=== PATIENT | male | born 1960 | race Caucasian/White ===

== ENCOUNTER 2016-06-06 21:03 | Emergency (ER) | payer OTHER ==
[2016-06-06 22:30] LABS: BILIRUBIN NEGATIVE (NEGATIVE); BLOOD TRACE-INTACT Ery/uL (NEGATIVE); CLARITY CLEAR (CLEAR); COLOR YELLOW (YELLOW); GLUCOSE (U) NORMAL (NORMAL); KETONE (U) NEGATIVE (NEGATIVE); LEUKOCYTES NEGATIVE Leu/uL (NEGATIVE); NITRITE NEGATIVE (NEGATIVE); PROTEIN 2+ mg/dL (NEGATIVE); UROBILINOGEN 0.2 mg/dL (0.2-1.0); pH 5.5 (5.0-9.0)
[2016-06-06 23:18] LABS: BASOPHIL 0.3 % (0-2); EOSINOPHIL 1.9 % (0-5); HCT 38.9 % (42.0-52.0); HGB 13.1 g/dl (13.2-18.0); LYMPHOCYTE 9.1 % (15-48); MCH 28.2 pg (25.0-31.0); MCHC 33.7 g/dL (32.0-36.0); MCV 83.8 fL (78.0-100.0); MONOCYTE 7.5 % (0-12); MPV 10.6 fL (6.0-9.5); NEUTROPHIL 81.2 % (41-80); PLT 355 K/uL (150-400); RBC 4.64 M/uL (4.70-6.00); RDW 15.6 % (11.5-14.0)
[2016-06-06 23:23] LABS: WBC 15.4 K/uL (4.0-10.5)
[2016-06-06 23:36] LABS: CREATININE 0.8 mg/dL (0.7-1.2); POTASSIUM 3.4 mmol/L (3.5-5.1)
== END 2016-06-07 00:15 | disposition home or self-care (01) ==
LOC: FER 21:03
PROVIDERS: Emergency Medicine
DX: K21.9 Gastro-esophageal reflux disease without esophagitis (principal); R42 Dizziness and giddiness; J02.9 Acute pharyngitis, unspecified; I10 Essential (primary) hypertension; E11.9 Type 2 diabetes mellitus without complications; E66.01 Morbid (severe) obesity due to excess calories; Z88.8 Allergy status to other drugs, medicaments and biological substances; Z79.82 Long term (current) use of aspirin; Z79.84 Long term (current) use of oral hypoglycemic drugs; Z79.4 Long term (current) use of insulin; Z79.899 Other long term (current) drug therapy
CPT/HCPCS: 36415; 71010; 80048; 81001; 85025; 87450; 87804; 87899; 93005

== ENCOUNTER → 2016-07-17 | Day surgery (SDC) | payer OTHER ==
[~2016-07-17] MED LIST: ACETAMINOPHEN325 MG PO; ANTIVERT25 MG PO; ASPIRIN CHEWABL81 MG PO; CARAFATE1 GM PO; CLONIDINE 0.3M0.3 MG PO; COREG12.5 MG PO; DIGITEK250 MCG PO; EXFORGE 10-3201 EACH PO; FISH OI PO; FLAXSEED OIL PO; FLONASE ALLER15.8 ML; HCTZ25 MG PO; HUMULIN R SQ; HUMULIN R100 UNIT/2 SQ; K-DUR20 MEQ PO; LANTUS100 UNIT/1 SQ; LASIX40 MG PO; LINZESS145 MCG PO; LIPITOR80 MG PO; MAG-OXIDE 400M400 MG PO; METFORMIN HCL1000 MG PO; NEURONTIN300 MG PO; NITROSTAT0.4 MG SL; NYSTATIN1 EAC3 TOP; PHENERGAN25 M1 PO; SYNTHROID50 MCG PO; VENTOLIN HFA IN18 GM INH; VIBRAMYCIN100 MG PO; VITAMIN D1000 UNI1 PO; ZANTAC150 MG PO; ZYRTEC10 MG PO
[2016-07-17 08:24] LABS: HCT 40.7 % (42.0-52.0); HGB 13.8 g/dl (13.2-18.0); MCH 28.6 pg (25.0-31.0); MCHC 33.9 g/dL (32.0-36.0); MCV 84.4 fL (78.0-100.0); MPV 10.4 fL (6.0-9.5); RBC 4.82 M/uL (4.70-6.00); RDW 15.3 % (11.5-14.0); WBC 13.3 K/uL (4.0-10.5)
[2016-07-17 08:40] LABS: ALBUMIN 4.3 g/dL (3.5-5.0); BILIRUBIN - TOTAL 1.1 mg/dL (0.1-1.0); CREATININE 0.7 mg/dL (0.7-1.2); GLOBULIN (CALCULATION) 3.6 g/dL (2.2-4.2); POTASSIUM 3.8 mmol/L (3.5-5.1); TOTAL PROTEIN 7.9 g/dL (6.4-8.3)
== END | disposition home or self-care (01) ==
LOC: FAS 07-02 09:00
PROVIDERS: Surgery
DX: Z12.11 Encounter for screening for malignant neoplasm of colon (principal); I10 Essential (primary) hypertension; I48.91 Unspecified atrial fibrillation; E11.9 Type 2 diabetes mellitus without complications; E78.00 Pure hypercholesterolemia, unspecified; E03.9 Hypothyroidism, unspecified; K21.9 Gastro-esophageal reflux disease without esophagitis; M19.90 Unspecified osteoarthritis, unspecified site; G47.30 Sleep apnea, unspecified; J45.909 Unspecified asthma, uncomplicated; J44.9 Chronic obstructive pulmonary disease, unspecified; H26.9 Unspecified cataract; K31.84 Gastroparesis; E66.01 Morbid (severe) obesity due to excess calories; Z87.891 Personal history of nicotine dependence; Z95.5 Presence of coronary angioplasty implant and graft; Z88.8 Allergy status to other drugs, medicaments and biological substances; Z99.89 Dependence on other enabling machines and devices; Z87.01 Personal history of pneumonia (recurrent); Z81.1 Family history of alcohol abuse and dependence; Z82.3 Family history of stroke; Z82.49 Family history of ischemic heart disease and other diseases of the circulatory system; Z79.4 Long term (current) use of insulin; Z79.899 Other long term (current) drug therapy; Z98.890 Other specified postprocedural states
CPT/HCPCS: 36415; 80053; J2704

== ENCOUNTER 2016-08-09 18:46 | Emergency (ER) | payer OTHER | END 2016-08-09 22:00 | disposition left against medical advice (07) | LOC: FER 18:46 | DX: R10.9 Unspecified abdominal pain (principal); Z53.8 Procedure and treatment not carried out for other reasons ==

== ENCOUNTER 2016-08-15 13:17 | Emergency (ER) | payer OTHER | END 2016-08-15 15:32 | disposition home or self-care (01) | LOC: FER 13:17 | DX: M94.0 Chondrocostal junction syndrome [Tietze] (principal); E11.9 Type 2 diabetes mellitus without complications; Z85.828 Personal history of other malignant neoplasm of skin; Z87.81 Personal history of (healed) traumatic fracture; Z88.8 Allergy status to other drugs, medicaments and biological substances; Z79.4 Long term (current) use of insulin; Z79.84 Long term (current) use of oral hypoglycemic drugs | CPT/HCPCS: 71101; 99284 ==

== ENCOUNTER 2016-08-18 02:11 | Emergency (ER) | payer OTHER ==
[2016-08-18 03:16] LABS: BASOPHIL 0.3 % (0-2); HCT 37.2 % (42.0-52.0); HGB 12.7 g/dl (13.2-18.0); MCH 29.1 pg (25.0-31.0); MCHC 34.1 g/dL (32.0-36.0); MCV 85.3 fL (78.0-100.0); MONOCYTE 11.4 % (0-12); MPV 10.8 fL (6.0-9.5); NEUTROPHIL 70.3 % (41-80); PLT 296 K/uL (150-400); RBC 4.36 M/uL (4.70-6.00); RDW 14.8 % (11.5-14.0); WBC 12.1 K/uL (4.0-10.5)
[2016-08-18 03:32] LABS: CREATININE 0.8 mg/dL (0.7-1.2); POTASSIUM 3.7 mmol/L (3.5-5.1)
[2016-08-18 03:34] LABS: CKMB 2.77 ng/mL (0.97-4.94); TROPONIN T < 0.010 ng/mL
== END 2016-08-18 04:38 | disposition home or self-care (01) ==
LOC: FER 02:11
PROVIDERS: Emergency Medicine
DX: M94.0 Chondrocostal junction syndrome [Tietze] (principal); I10 Essential (primary) hypertension; I48.91 Unspecified atrial fibrillation; E78.5 Hyperlipidemia, unspecified; Z88.8 Allergy status to other drugs, medicaments and biological substances; Z79.84 Long term (current) use of oral hypoglycemic drugs; Z79.82 Long term (current) use of aspirin; Z79.899 Other long term (current) drug therapy
CPT/HCPCS: 36415; 71010; 80048; 82550; 82553; 84484; 85025; 85379; 93005; J1885

== ENCOUNTER 2016-08-19 16:46 | Emergency (ER) | payer OTHER ==
[2016-08-19 17:08] LABS: BASOPHIL 0.2 % (0-2); EOSINOPHIL 0 % (0-5); HCT 38.6 % (42.0-52.0); HGB 13.5 g/dl (13.2-18.0); LYMPHOCYTE 10.3 % (15-48); MCH 29.3 pg (25.0-31.0); MCV 83.9 fL (78.0-100.0); MONOCYTE 9.4 % (0-12); MPV 11.2 fL (6.0-9.5); NEUTROPHIL 80.1 % (41-80); PLT 379 K/uL (150-400); RDW 14.9 % (11.5-14.0)
[2016-08-19 17:20] LABS: INR 1.09 (0.9-1.2); PROTHROMBIN TIME 13.7 SECONDS (11.7-14.0); PTT 26.5 SECONDS (23.2-31.4)
[2016-08-19 17:30] LABS: CKMB 4.52 ng/mL (0.97-4.94); MYOGLOBIN 210 ng/mL (26-65); TROPONIN T < 0.010 ng/mL
[2016-08-19 17:33] LABS: BILIRUBIN - TOTAL 0.3 mg/dL (0.1-1.0); CREATININE 0.8 mg/dL (0.7-1.2); MAGNESIUM 1.67 mg/dL (1.40-2.10); POTASSIUM 4.5 mmol/L (3.5-5.1)
[2016-08-19 17:35] LABS: PRO-BNP 1085 pg/mL (0-125)
== END 2016-08-19 23:58 | disposition other institution (70) ==
LOC: FER 16:46
PROVIDERS: Emergency Medicine
DX: I21.4 Non-ST elevation (NSTEMI) myocardial infarction (principal); I10 Essential (primary) hypertension; E11.9 Type 2 diabetes mellitus without complications; E78.5 Hyperlipidemia, unspecified; Z85.828 Personal history of other malignant neoplasm of skin; Z88.8 Allergy status to other drugs, medicaments and biological substances; Z79.84 Long term (current) use of oral hypoglycemic drugs; Z79.82 Long term (current) use of aspirin; Z79.899 Other long term (current) drug therapy
CPT/HCPCS: 36415; 71010; 71275; 80053; 82550; 82553; 83735; 83874; 83880; 84484; 85025; 85610; 85730; 93005; 96374; J1644; J2270; J2405; Q9967

== ENCOUNTER 2016-08-22 18:51 | Day surgery (SDCO) | payer OTHER ==
[~2016-08-22] VITALS: Ht 172.7 cm; Wt 171.7 kg
[2016-08-22 21:08] LABS: BASOPHIL 0.3 % (0-2); HCT 39.3 % (42.0-52.0); HGB 13.6 g/dl (13.2-18.0); LYMPHOCYTE 15.1 % (15-48); MCH 29.1 pg (25.0-31.0); MCHC 34.6 g/dL (32.0-36.0); MONOCYTE 8.3 % (0-12); MPV 10.9 fL (6.0-9.5); NEUTROPHIL 74.3 % (41-80); PLT 373 K/uL (150-400); RBC 4.68 M/uL (4.70-6.00); RDW 15.1 % (11.5-14.0); WBC 16.8 K/uL (4.0-10.5)
[2016-08-22 21:23] LABS: ALBUMIN 3.8 g/dL (3.5-5.0); BILIRUBIN - TOTAL 0.5 mg/dL (0.1-1.0); CREATININE 0.9 mg/dL (0.7-1.2); GLOBULIN (CALCULATION) 3.4 g/dL (2.2-4.2); POTASSIUM 3.6 mmol/L (3.5-5.1); TOTAL PROTEIN 7.2 g/dL (6.4-8.3)
[2016-08-22 22:40] LABS: CKMB 2.97 ng/mL (0.97-4.94)
[2016-08-22 22:45] LABS: TROPONIN T 0.698 ng/mL
[2016-08-23 03:08] LABS: BASOPHIL 0.3 % (0-2); EOSINOPHIL 1.7 % (0-5); HCT 36.8 % (42.0-52.0); HGB 12.7 g/dl (13.2-18.0); LYMPHOCYTE 13.6 % (15-48); MCH 29.2 pg (25.0-31.0); MCHC 34.5 g/dL (32.0-36.0); MCV 84.6 fL (78.0-100.0); MONOCYTE 8.5 % (0-12); NEUTROPHIL 75.9 % (41-80); PLT 297 K/uL (150-400); RBC 4.35 M/uL (4.70-6.00); RDW 14.9 % (11.5-14.0); WBC 15.1 K/uL (4.0-10.5)
[2016-08-23 03:18] LABS: INR 1.13 (0.9-1.2); PROTHROMBIN TIME 14.1 SECONDS (11.7-14.0); PTT 29.2 SECONDS (23.2-31.4)
[2016-08-23 03:26] LABS: CKMB 2.76 ng/mL (0.97-4.94)
[2016-08-23 03:28] LABS: ALBUMIN 3.5 g/dL (3.5-5.0); BILIRUBIN - TOTAL 0.4 mg/dL (0.1-1.0); CREATININE 0.9 mg/dL (0.7-1.2); GLOBULIN (CALCULATION) 3.2 g/dL (2.2-4.2); MAGNESIUM 1.99 mg/dL (1.40-2.10); PHOSPHORUS 4.2 mg/dL (2.7-4.5); POTASSIUM 3.3 mmol/L (3.5-5.1); TOTAL PROTEIN 6.7 g/dL (6.4-8.3)
[2016-08-23 03:29] LABS: TROPONIN T 0.616 ng/mL
[2016-08-23 04:12] LABS: BILIRUBIN NEGATIVE (NEGATIVE); BLOOD NEGATIVE Ery/uL (NEGATIVE); CLARITY CLEAR (CLEAR); COLOR YELLOW (YELLOW); GLUCOSE (U) NORMAL (NORMAL); KETONE (U) NEGATIVE (NEGATIVE); LEUKOCYTES NEGATIVE Leu/uL (NEGATIVE); NITRITE NEGATIVE (NEGATIVE); PROTEIN 2+ mg/dL (NEGATIVE); SPECIFIC GRAVITY 1.015 (1.001-1.030); UROBILINOGEN 0.2 mg/dL (0.2-1.0); pH 7.5 (5.0-9.0)
[2016-08-23 04:17] LABS: BACTERIA TRACE; MUCOUS MODERATE; SQUAMOUS EPITHELIAL CELLS RARE
[2016-08-23 10:02] LABS: CKMB 2.75 ng/mL (0.97-4.94)
[2016-08-23 10:04] LABS: TROPONIN T 0.616 ng/mL
[2016-08-24 04:07] LABS: BASOPHIL 0.4 % (0-2); EOSINOPHIL 2.3 % (0-5); HCT 37.9 % (42.0-52.0); HGB 12.9 g/dl (13.2-18.0); LYMPHOCYTE 20.6 % (15-48); MCV 85.2 fL (78.0-100.0); MONOCYTE 8.7 % (0-12); MPV 10.5 fL (6.0-9.5); PLT 290 K/uL (150-400); RBC 4.45 M/uL (4.70-6.00); RDW 14.9 % (11.5-14.0); WBC 12.2 K/uL (4.0-10.5)
[2016-08-24 04:24] LABS: CREATININE 0.8 mg/dL (0.7-1.2); POTASSIUM 3.8 mmol/L (3.5-5.1)
[2016-08-24] MEDS ORDERED: COREG12.5 MG PO (11:23)
[2016-08-24] MEDS ORDERED: DIGITEK250 MCG PO (11:24)
[2016-08-24] MEDS ORDERED: FLONASE ALLER15.8 ML (11:24)
[2016-08-24] MEDS ORDERED: NYSTATIN1 EAC3 TOP (11:25)
[2016-08-24] MEDS ORDERED: LASIX40 MG PO (11:25)
[2016-08-24] MEDS ORDERED: FISH OI PO (11:26)
[2016-08-24] MEDS ORDERED: FLAXSEED OIL PO (11:26)
[2016-08-24] MEDS ORDERED: LINZESS145 MCG PO (11:27)
[2016-08-24] MEDS ORDERED: CLONIDINE 0.3M0.3 MG PO (11:27)
[2016-08-24] MEDS ORDERED: VENTOLIN HFA IN18 GM INH (11:28)
[2016-08-24] MEDS ORDERED: ASPIRIN CHEWABL81 MG PO (11:28)
[2016-08-24] MEDS ORDERED: K-DUR20 MEQ PO (11:29)
[2016-08-24] MEDS ORDERED: VITAMIN D1000 UNI1 PO (11:29)
[2016-08-24] MEDS ORDERED: ZYRTEC10 MG PO (11:30)
[2016-08-24] MEDS ORDERED: HCTZ25 MG PO (11:30)
[2016-08-24] MEDS ORDERED: EXFORGE 10-3201 EACH PO (11:31)
[2016-08-24] MEDS ORDERED: LIPITOR80 MG PO (11:31)
[2016-08-24] MEDS ORDERED: NITROSTAT0.4 MG SL (11:31)
[2016-08-24] MEDS ORDERED: CARAFATE1 GM PO (11:32)
[2016-08-24] MEDS ORDERED: ACETAMINOPHEN325 MG PO (11:32)
[2016-08-24] MEDS ORDERED: LANTUS100 UNIT/1 SQ (11:33)
[2016-08-24] MEDS ORDERED: METFORMIN HCL1000 MG PO (11:34)
[2016-08-24] MEDS ORDERED: HUMULIN R SQ (11:36)
[2016-08-24] MEDS ORDERED: PHENERGAN25 M1 PO (11:37)
[2016-08-24] MEDS ORDERED: SYNTHROID50 MCG PO (11:38)
[2016-08-24] MEDS ORDERED: NEURONTIN300 MG PO (11:38)
[2016-08-24] MEDS ORDERED: MAG-OXIDE 400M400 MG PO (11:38)
[2016-08-24] MEDS ORDERED: ANTIVERT25 MG PO (11:39)
[2016-08-24] MEDS ORDERED: ZANTAC150 MG PO (11:39)
[2016-08-24] MEDS ORDERED: VIBRAMYCIN100 MG PO (11:40)
[2016-08-24] MEDS ORDERED: HUMULIN R100 UNIT/2 SQ (11:43)
--- NOTE | 2016-08-24 11:45 | NUR ---
IV SITE DC;PRESSURE DRESSING APPLIED;DC & RX INSTRUCTIONS GIVEN;PT VERBALIZED UNDERSTANDING.
== END 2016-08-24 12:50 | disposition home or self-care (01) ==
LOC: FER 18:51 → FTCU 22:40
PROVIDERS: Emergency Medicine Emergency Medical Services; Internal Medicine; ADMIT Internal Medicine
DX: R42 Dizziness and giddiness (principal); H83.01 Labyrinthitis, right ear; I25.10 Atherosclerotic heart disease of native coronary artery without angina pectoris; I25.2 Old myocardial infarction; Z95.5 Presence of coronary angioplasty implant and graft; I48.0 Paroxysmal atrial fibrillation; I11.9 Hypertensive heart disease without heart failure; R61 Generalized hyperhidrosis; E11.9 Type 2 diabetes mellitus without complications; Z79.4 Long term (current) use of insulin; D72.829 Elevated white blood cell count, unspecified; E83.42 Hypomagnesemia; R60.9 Edema, unspecified; G47.33 Obstructive sleep apnea (adult) (pediatric); K21.9 Gastro-esophageal reflux disease without esophagitis; Z87.01 Personal history of pneumonia (recurrent); Z85.828 Personal history of other malignant neoplasm of skin; D50.9 Iron deficiency anemia, unspecified; E03.9 Hypothyroidism, unspecified; E78.5 Hyperlipidemia, unspecified; E66.01 Morbid (severe) obesity due to excess calories; Z68.43 Body mass index [BMI] 50.0-59.9, adult; M19.90 Unspecified osteoarthritis, unspecified site; Z88.8 Allergy status to other drugs, medicaments and biological substances
CPT/HCPCS: 36415; 70450; 71010; 80048; 80053; 81001; 82550; 82553; 82962; 83605; 83735; 83880; 84100; 84484; 85025; 85610; 85730; 87040; 87088; 93005; 94010; 97116; 97162; 97165; 97530; 97530-GP; G0378; J1815; J2405

== ENCOUNTER 2020-03-12 01:39 | Emergency (ER) | payer OTHER ==
[~2020-03-12 01:39] MED LIST changes: -ACETAMINOPHEN325 MG PO; +ALLEGRA ALLERG180 MG PO; +BACTRIM DS TAB1 EACH PO; -DIGITEK250 MCG PO; +FEOSOL45 MG PO; -FISH OI PO; +FISH OIL EC 1,1 EAC1 PO; -FLAXSEED OIL PO; +HUMULIN R100 UNIT/2 SC; +LANOXIN250 MCG PO; +LEXAPRO 10MG TA10 MG PO; +METOPROLOL SUC100 MG PO; +NEBULIZER UNIT NEB; +NORCO 5-325 TA1 EACH PO; +PEPCID AC20 MG PO; +PEPCID40 MG PO; +PLAVIX75 M1 PO; +POTASSIUM CHLORIDE PO; +PROBIOTIC1 EAC1 PO; +SINGULAIR10 MG PO; +TEKTURNA150 MG PO; +TRESIBA FL100 UNIT/1 SC; -ZANTAC150 MG PO; +ZOFRAN4 MG PO
[2020-03-12 03:18] LABS: BASOPHIL 0.6 % (0-2); EOSINOPHIL 0.7 % (0-5); HCT 42.1 % (42.0-52.0); HGB 13.9 g/dl (13.2-18.0); LYMPHOCYTE 14.3 % (15-48); MCH 29.6 pg (25.0-31.0); MCV 89.8 fL (78.0-100.0); MONOCYTE 6.7 % (0-12); MPV 10.4 fL (6.0-9.5); NEUTROPHIL 76.8 % (41-80); NRBC 0; PLT 398 K/uL (150-400); RBC 4.69 M/uL (4.70-6.00); RDW 14.5 % (11.5-14.0)
[2020-03-12 03:46] LABS: ALBUMIN 3.3 g/dL (3.4-5.0); BILIRUBIN - TOTAL 0.3 mg/dL (0.2-1.0); BUN/CREAT RATIO (CALC) 20.2 RATIO; CREATININE 0.84 mg/dL (0.67-1.17); GLOBULIN (CALCULATION) 5.2 g/dL; POTASSIUM 3.9 mmol/L (3.5-5.1); TOTAL PROTEIN 8.5 g/dL (6.4-8.2)
[2020-03-12] MEDS ORDERED: MYLANTA MAXIMU355 ML PO (05:16)
[2020-03-12] MEDS ORDERED: BENTYL10 MG PO (05:16)
[2020-03-12] MEDS ORDERED: BENADRYL A12.5 MG/5 PO (05:16)
[2020-03-28] MEDS ORDERED: SPIRONOLACTONE25 M1 PO (11:00)
== END 2020-03-12 05:45 | disposition home or self-care (01) ==
LOC: FER 01:39
PROVIDERS: Emergency Medicine Emergency Medical Services
DX: R10.84 Generalized abdominal pain (principal); R11.2 Nausea with vomiting, unspecified; I48.91 Unspecified atrial fibrillation; E11.9 Type 2 diabetes mellitus without complications; I10 Essential (primary) hypertension; J44.9 Chronic obstructive pulmonary disease, unspecified; E66.01 Morbid (severe) obesity due to excess calories; Z98.890 Other specified postprocedural states; Z88.8 Allergy status to other drugs, medicaments and biological substances; Z87.19 Personal history of other diseases of the digestive system
CPT/HCPCS: 36415; 80053; 83605; 83690; 84145; 85025; 99283; Q0169

== ENCOUNTER → 2020-04-17 | Day surgery (SDC) | payer OTHER ==
[~2020-04-17] MED LIST changes: +BENADRYL A12.5 MG/5 PO; +BENTYL10 MG PO; +MYLANTA MAXIMU355 ML PO; +SPIRONOLACTONE25 M1 PO
[2020-04-17 08:11] LABS: HCT 42.1 % (42.0-52.0); HGB 13.9 g/dl (13.2-18.0); MCH 29.8 pg (25.0-31.0); MCV 90.1 fL (78.0-100.0); MPV 10.6 fL (6.0-9.5); RBC 4.67 M/uL (4.70-6.00); RDW 14.5 % (11.5-14.0)
[2020-04-17 10:29] LABS: ALBUMIN 3.4 g/dL (3.4-5.0); BILIRUBIN - TOTAL 0.7 mg/dL (0.2-1.0); BUN/CREAT RATIO (CALC) 28.2 RATIO; CREATININE 0.85 mg/dL (0.67-1.17); GLOBULIN (CALCULATION) 4.7 g/dL; POTASSIUM 4.3 mmol/L (3.5-5.1); TOTAL PROTEIN 8.1 g/dL (6.4-8.2)
== END | disposition home or self-care (01) ==
LOC: FAS 07:31
PROVIDERS: Surgery
DX: D12.3 Benign neoplasm of transverse colon (principal); K29.50 Unspecified chronic gastritis without bleeding; K31.89 Other diseases of stomach and duodenum; K25.3 Acute gastric ulcer without hemorrhage or perforation; D64.9 Anemia, unspecified; J35.1 Hypertrophy of tonsils; E03.9 Hypothyroidism, unspecified; E11.9 Type 2 diabetes mellitus without complications; G47.30 Sleep apnea, unspecified; I10 Essential (primary) hypertension; I48.91 Unspecified atrial fibrillation; I25.10 Atherosclerotic heart disease of native coronary artery without angina pectoris; I25.2 Old myocardial infarction; Z86.010 Personal history of colon polyps; Z79.02 Long term (current) use of antithrombotics/antiplatelets; Z79.4 Long term (current) use of insulin; Z79.82 Long term (current) use of aspirin; Z79.899 Other long term (current) drug therapy; Z88.8 Allergy status to other drugs, medicaments and biological substances; Z95.5 Presence of coronary angioplasty implant and graft
CPT/HCPCS: 36415; 80053; J2704; J7120

== ENCOUNTER 2020-10-02 01:07 | Emergency (ER) | payer OTHER ==
[2020-10-02 02:03] LABS: BASOPHIL 0.5 % (0-2); EOSINOPHIL 1.4 % (0-5); HCT 36.7 % (42.0-52.0); HGB 12.4 g/dl (13.2-18.0); LYMPHOCYTE 13.6 % (15-48); MCH 30.8 pg (25.0-31.0); MCHC 33.8 g/dL (32.0-36.0); MCV 91.3 fL (78.0-100.0); MONOCYTE 8.9 % (0-12); MPV 10.1 fL (6.0-9.5); NEUTROPHIL 73.4 % (41-80); NRBC 0; PLT 342 K/uL (150-400); RBC 4.02 M/uL (4.70-6.00); RDW 13.7 % (11.5-14.0); WBC 17.1 K/uL (4.0-10.5)
[2020-10-02 02:21] LABS: ALBUMIN 3.7 g/dL (3.4-5.0); BILIRUBIN - TOTAL 0.4 mg/dL (0.2-1.0); BUN/CREAT RATIO (CALC) 31.2 RATIO; CREATININE 0.96 mg/dL (0.67-1.17); GLOBULIN (CALCULATION) 4.3 g/dL; POTASSIUM 4.2 mmol/L (3.5-5.1)
[2020-10-02 02:30] LABS: BILIRUBIN NEGATIVE (NEGATIVE); BLOOD NEGATIVE Ery/uL (NEGATIVE); CLARITY CLEAR (CLEAR); COLOR YELLOW (YELLOW); GLUCOSE (U) NORMAL (NORMAL); LEUKOCYTES NEGATIVE Leu/uL (NEGATIVE); NITRITE NEGATIVE (NEGATIVE); PROTEIN 1+ mg/dL (NEGATIVE); SPECIFIC GRAVITY 1.015 (1.001-1.030); UROBILINOGEN 0.2 mg/dL (0.2-1.0)
[2020-10-02 02:36] LABS: SQUAMOUS EPITHELIAL CELLS RARE
[2020-10-02] MEDS ORDERED: PROTONIX20 MG PO (05:05)
== END 2020-10-02 05:20 | disposition home or self-care (01) ==
LOC: FER 01:07
PROVIDERS: Emergency Medicine
DX: R10.13 Epigastric pain (principal); I10 Essential (primary) hypertension; I25.10 Atherosclerotic heart disease of native coronary artery without angina pectoris; Z79.82 Long term (current) use of aspirin; Z79.02 Long term (current) use of antithrombotics/antiplatelets
CPT/HCPCS: 36415; 80053; 81001; 82270; 83690; 84484; 85025; 93005; C9113; J2354; J7030; Q9967

== ENCOUNTER 2020-12-08 21:48 | Emergency (ER) | payer OTHER ==
[~2020-12-08 21:48] MED LIST changes: +PROTONIX20 MG PO
[2020-12-08 22:23] LABS: BASOPHIL 0.5 % (0-2); HCT 36.6 % (42.0-52.0); HGB 12.3 g/dl (13.2-18.0); LYMPHOCYTE 13.7 % (15-48); MCH 31.5 pg (25.0-31.0); MCHC 33.6 g/dL (32.0-36.0); MCV 93.6 fL (78.0-100.0); MONOCYTE 8.1 % (0-12); MPV 10.1 fL (6.0-9.5); NEUTROPHIL 75.4 % (41-80); NRBC 0; PLT 323 K/uL (150-400); RBC 3.91 M/uL (4.70-6.00); RDW 13.6 % (11.5-14.0); WBC 17.4 K/uL (4.0-10.5)
[2020-12-08 22:54] LABS: ALBUMIN 3.6 g/dL (3.4-5.0); BILIRUBIN - TOTAL 0.3 mg/dL (0.2-1.0); BUN/CREAT RATIO (CALC) 28.2 RATIO; CREATININE 1.03 mg/dL (0.67-1.17); GLOBULIN (CALCULATION) 4.4 g/dL; MAGNESIUM 1.9 mg/dL (1.8-2.4); POTASSIUM 4.2 mmol/L (3.5-5.1)
== END 2020-12-08 23:59 | disposition home or self-care (01) ==
LOC: FER 21:48
PROVIDERS: Nurse Practitioner Family
DX: K21.9 Gastro-esophageal reflux disease without esophagitis (principal); E11.9 Type 2 diabetes mellitus without complications; Z88.8 Allergy status to other drugs, medicaments and biological substances; Z88.1 Allergy status to other antibiotic agents
CPT/HCPCS: 36415; 80053; 83735; 85025; J2550